=== PATIENT | female | born 1995 | race African-American/Black ===

== ENCOUNTER 2018-08-01 17:12 | Emergency (ER) | payer SELFPAY ==
[2018-08-01] MEDS ORDERED: Ketorolac Tromethamine 30 MG/ML VIAL ONE (18:15)
--- NOTE | 2018-08-01 20:15 | ULT ---
PELVIC ULTRASOUND: HISTORY: Right lower quadrant pain. TECHNIQUE: Real-time imaging of the pelvis was obtained transabdominally. The patient declined an endovaginal e xam. FINDINGS: The uterus has been removed, by history. The right and left ovaries appear normal in size. There appear to be some small follicles. On Doppler evaluation with spectral analysis, normal flow is shown to both ovaries. No free fluid is demonstrated at the time of this examination, although free fluid was seen on an earlier CT study. IMPRESSION: 1. The uterus appears absent. 2. The right ovary is difficult to visualize. There is a small follicle present, measuring in the 1 .4 cm range. I do not appreciate free fluid on this examination. POS: SHYAM
[2018-08-01] MEDS ORDERED: Acetaminophen/Codeine 30-300mg Tablet ONE (20:23)
== END 2018-08-01 20:25 | disposition home or self-care (01) ==
LOC: ERS 17:12
DX: N83.01 Follicular cyst of right ovary (principal); F17.210 Nicotine dependence, cigarettes, uncomplicated
CPT/HCPCS: 76856; 96374; J1885

== ENCOUNTER 2020-07-31 16:18 | Emergency (ER) | payer SELFPAY ==
[2020-07-31] MEDS ORDERED: Morphine 4 MG/ML VIAL ONE (17:05)
--- NOTE | 2020-07-31 18:26 | ULT ---
EXAM: Pelvic ultrasound HISTORY: Pelvic pain. History of hysterectomy. COMPARISON: 08/01/2018 TECHNIQUE: Multiple grayscale and color Doppler images were obtained in a transabdominal and transvag inal pelvic ultrasound. Spectral analysis of the Doppler waveforms of the ovaries were performed. FINDINGS: UTERUS: Absent No free fluid is seen in the pelvis. RIGHT OVARY: Normal flow without focal mass. LEFT OVARY: Normal flow without focal mass. IMPRESSION: No significant pelvic abnormality
[2020-07-31] MEDS ORDERED: Ketorolac Tromethamine 30 MG/ML VIAL ONE (19:12)
[2020-07-31] MEDS ORDERED: Acetaminophen/Codeine 30-300mg Tablet ONE (19:12)
== END 2020-07-31 19:10 | disposition home or self-care (01) ==
LOC: ERS 16:18
DX: R10.9 Unspecified abdominal pain (principal); F17.210 Nicotine dependence, cigarettes, uncomplicated
CPT/HCPCS: 76856; 96374; 96375; J1885; J2270